=== PATIENT | female | born 1965 | race American Indian/Alaskan Native ===

== ENCOUNTER 2019-03-14 09:10 | Emergency (ER) | payer BC, OTHER ==
[~2019-03-14] VITALS: Ht 160 cm; Wt 88.0 kg
[~2019-03-14 09:10] MED LIST: DICL50TA8 PO; FLO0.4C PO; HYDR-4353 PO; KETO10TA2 PO; LISI-604 PO; ONDA4TAB6 PO; OXYC-150 PO; PER5325T PO; progesterone cream TOP
[2019-03-14] MEDS ORDERED: normal saline 1000ML IV soln IVB ONE (09:50)
[2019-03-14] MEDS ORDERED: ondansetron/PF 4mg/2ml inj IV ONE (09:50)
[2019-03-14] MEDS ORDERED: ketorolac tromethamine 15mg/ml inj. IV ONE (09:50)
[2019-03-14 10:13] LABS: BASOPHILS # (AUTO) 0.1 X10'3 (0-0.2); BASOPHILS % (AUTO) 0.8 % (0-1); EOSINOPHILS % (AUTO) 0.6 % (0-6); HEMATOCRIT 46.2 % (35.0-45.0); HEMOGLOBIN 16.7 g/dl (12.0-16.0); LYMPHOCYTES # (AUTO) 2.7 X10'3 (1.1-4.8); LYMPHOCYTES % (AUTO) 36.2 % (21-51); MEAN CORPUSCULAR HEMOGLOBIN 31.6 PG (27.0-31.0); MEAN CORPUSCULAR VOLUME 87.7 FL (78-98); MEAN PLATELET VOLUME 7.8 FL (7.4-10.4); MONOCYTES # (AUTO) 0.5 X10'3 (0-0.9); MONOCYTES % (AUTO) 7.1 % (2-12); NEUTROPHILS # (AUTO) 4.2 X10'3 (1.8-7.7); NEUTROPHILS % (AUTO) 55.3 % (42-75); PLATELET COUNT 301 X10'3 (140-440); RED BLOOD COUNT 5.27 X10'6 (4.20-5.60); RED CELL DISTRIBUTION WIDTH 12.3 % (11.5-14.5); WHITE BLOOD COUNT 7.6 X10'3 (4.5-11.0)
[2019-03-14 10:23] LABS: ALANINE AMINOTRANSFERASE 49 U/L (12-78); ALBUMIN 4.4 G/DL (3.4-5.0); ALBUMIN/GLOBULIN RATIO 1.3 (1.1-1.5); ALKALINE PHOSPHATASE 120 IU/L (46-116); ANION GAP 10 (8-16); ASPARTATE AMINO TRANSFERASE 29 U/L (10-37); BILIRUBIN,TOTAL 1.2 MG/DL (0.1-1.0); BLOOD UREA NITROGEN 18 MG/DL (7-18); BUN/CREATININE RATIO 21.2 (6.6-38.0); CALCIUM 9.4 MG/DL (8.5-10.1); CHLORIDE 98 MMOL/L (99-107); CREATININE 0.85 MG/DL (0.40-0.90); GLUCOSE 124 MG/DL (70-104); LIPASE 209 U/L (73-393); SODIUM 136 MMOL/L (135-145); TOTAL CARBON DIOXIDE 28.2 MMOL/L (24-32); TOTAL PROTEIN 7.7 G/DL (6.4-8.2); eGFR 70 ML/MIN
[2019-03-14 10:26] LABS: POTASSIUM 2.4 MMOL/L (3.5-5.1)
[2019-03-14] MEDS ORDERED: potassium chloride 10mEq CAPSULE.SA PO SCH (10:30)
[2019-03-14] MEDS ORDERED: potassium Cl 20 mEq SR tablet PO SCH (10:35)
[2019-03-14] MEDS ORDERED: potassium Cl 20 mEq SR tablet PO ONE (10:35)
[2019-03-14 10:44] LABS: CLARITY,URINE SLIGHTLY CLOUDY (Clear); GLUCOSE, URINE NEGATIVE (Neg); KETONES,URINE NEGATIVE (Neg); LEUKOCYTE ESTERASE ,URINE NEGATIVE (Neg); NITRITES, URINE POSITIVE (Neg); OCCULT BLOOD,URINE NEGATIVE (Neg); PH,URINE 6.5 (4.8-8.0); PROTEIN,URINE TRACE mg/dl (Neg)
[2019-03-14 10:45] LABS: UA COLLECTION TYPE CLN CATCH MIDSTREAM
[2019-03-14 10:46] LABS: COLOR,URINE DARK YELLOW (Yellow)
[2019-03-14 10:51] LABS: HYALINE CASTS 0-3 /LPF (NEGATIVE); MUCUS STRANDS MANY /LPF (Neg); SQUAMOUS EPITHELIAL CELL,UR MANY /LPF (FEW)
[2019-03-14 10:52] LABS: BACTERIA,URINE FEW /HPF (Neg); RBC,URINE 0-2 /HPF (0-2); TRANSITIONAL EPI CELLS,URINE FEW /HPF; WBC,URINE 0-4 /HPF (0-4)
[2019-03-14] MEDS: morphine 4 MG/ML inj SYRINge IV PRN ×2 (11:53→12:41)
[2019-03-14] MEDS ORDERED: CEPH500C5 PO (12:19)
[2019-03-14] MEDS ORDERED: POTA20TA19 PO (12:19)
[2019-03-14] MEDS ORDERED: DICY10CA88 PO (12:35)
--- NOTE | 2019-03-14 12:49 | NUR ---
MEDICATED PT WITH SECOND DOSE OF PRN IV MORPHINE PER ORDERS, WILL NEED UPDATED VS AND DISCHARGE, NOTIFIED PRIMARY RN JOHAN.
[2019-03-14 13:40] VITALS: BP 122/73
== END 2019-03-14 13:41 | disposition home or self-care (01) ==
LOC: ER 09:11
DX: R10.11 Right upper quadrant pain (principal); E87.6 Hypokalemia; E86.0 Dehydration; Z87.442 Personal history of urinary calculi; Z90.710 Acquired absence of both cervix and uterus; Z98.890 Other specified postprocedural states; Z79.899 Other long term (current) drug therapy
CPT/HCPCS: 36415; 76775; 80053; 81001; 83690; 85025; 96361; 96374; 96375; 99284; J1885; J2270; J2405; J7030